=== PATIENT | male | born 1985 | race Caucasian/White ===

== ENCOUNTER 2024-01-03 17:23 | Inpatient (IN) | payer OTHER, SELFPAY ==
[2024-01-03 17:24] VITALS: BP 154/102; PULSE 99; RESP 18; TEMP 36.7; O2SAT 99; BMI 31.9
[2024-01-03 17:29] VITALS: BP 154/102; PULSE 99; RESP 18; TEMP 36.7; O2SAT 99
[2024-01-03 17:55] LABS: Add Urine Microscopic? NO; Charge for UA Resulting for Rev
[2024-01-03 18:00] LABS: Bilirubin Urine Neg (Negative); Blood Urine Neg (Negative); Glucose Urine UA Norm (Normal); Ketones Urine 1+ (Negative); Leukocyte Esterase Urine Negative (Negative); Nitrate Urine Negative; Protein Urine Neg (Negative); Urine Appearance Clear (CLEAR); Urine Color Yellow (Yellow); Urobilinogen Urine Norm (Negative); pH Urine 5 (5-7)
[2024-01-03 18:08] LABS: Amphetamines Screen Urine Negative (Negative); Barbiturates Screen Urine Negative (Negative); Benzodiazepines Screen Urine Negative (Negative); Cocaine Screen Urine Negative (Negative); Opiate Screen Urine Negative (Negative); PCP Screen Urine Negative (Negative); THC Screen Urine Negative (Negative)
[2024-01-03 18:21] LABS: Basophils # 0.1 10^3/uL (0.0-0.1); Basophils % 0.6 %; Eosinophils # 0.6 10^3/uL (0.0-0.8); Eosinophils % 6.6 %; Hematocrit 47.6 % (37-53); Lymphocytes % 21.7 %; Mean Corpuscular HGB Conc 34.2 g/dL (30-55); Mean Corpuscular Hemoglobin 30.5 pg (27-33); Mean Corpuscular Volume 89.1 fl (82-101); Mean Platelet Volume 10.7 fL (7.4-10.4); Monocytes # 0.7 10^3/uL (0.2-0.9); Monocytes % 7.1 %; Neutrophils # 5.91 10^3/uL (1.8-7.7); Neutrophils % 63.7 %; Nucleated Red Blood Cells % 0 %; Platelet Count 280 10^3/cmm (157-399); Red Blood Count 5.34 10^6/uL (3.85-5.65); Red Cell Distribution Width 12.6 % (12.1-15.1); White Blood Count 9.29 10^3/uL (3.29-11.43)
--- NOTE | 2024-01-03 18:27 | ED.C_ITS ---
HPI - Psych 2 General: Chief Complaint: Psychiatric Symptoms Stated Complaint: si Time Seen by Provider: 01/03/24 17:34 Source: patient Mode of arrival: EMS Limitations: no limitations History of Present Illness: Patient is a 38-year-old male who was brought in by EMS due to suicidal ideations. Patient states he has had similar instances in the past and overall he has had many years of feeling suicidal, however it has been worsened lately due to multiple personal issues. He states he has been caring for his 2 grandparents who have been deteriorating for some time, and this has caused him a lot of angst. He also states that he has been scammed multiple times, does not elaborate on this. His plan at this time is to call 911 and then mutilate himself with a knife so that they find a disturbing, gruesome seen. He states that he was in the [place] and used to get seen by psychiatrist at that time, has not seen one in a long time. He is not on any medications. Does not report any homicidal ideations or hallucinations of any kind. No other medical complaints at this time. MD complaint: suicidal ideation Onset (ago): year(s) Duration: constant History of same: Yes Context: not taking psychiatric medications and significant life stressor Associated symptoms: Reports depression and suicidal ideation; Deny auditory hallucinations, visual hallucinations or homicidal ideation If self harm: admits thoughts of self harm and has plan Review of Systems 2 General: Reports: 10 or more systems reviewed and unremarkable except in HPI and below Const: Denies: fever(s), chills or fatigue Eyes: Denies: change in vision ENMT: Denies: throat pain, ear or mastoid pain or nasal discharge Card: Denies: chest pain, palpitations, swelling of feet/ankles or lightheadedness Resp: Denies: dyspnea, productive cough or wheezing GI: Denies: abdominal pain, nausea, vomiting, diarrhea or constipation : Denies: flank pain, difficulty urinating, dysuria or urinary frequency Musc: Denies: neck pain, back pain or joint pain Skin/Breast: Denies: rash Neuro: Denies: headache(s), numbness in extremities or weakness in extremities Psych: Reports: depression, hopelessness and suicidal ideation; Denies: visual hallucinations, auditory hallucinations, tactile hallucinations or homicidal ideation Physical Exam 2 Const: COMMON NORMALS: no acute distress, patient oriented x3 and no limitations GENERAL APPEARANCE: cooperative, comfortable and well developed ORIENTATION/CONSCIOUSNESS: Yes awake, Yes oriented to person, Yes oriented to place and Yes oriented to time HENMT: COMMON NORMALS: normocephalic, atraumatic and hearing grossly normal bilaterally HEAD & SCALP: normocephalic and atraumatic Eye: COMMON NORMALS: Equal, round and reactive pupils present, EOMs intact bilaterally and conjunctivae normal CONJUNCTIVA: Yes conjunctivae normal P UPIL: Yes Equal, round and reactive pupils present Neck/C-Spine: COMMON NORMALS: full ROM, supple and no JVD Resp: COMMON NORMALS: normal respiratory effort, No retractions, No use of accessory muscles and clear to auscultation bilaterally AUSCULTATION: clear to auscultation bilaterally Cardio: COMMON NORMALS: no JVD, regular rate, regular rhythm, No clicks present (Cardio), No murmurs present (Cardio) and No rub (Cardio) RATE: r egular rate RHYTHM: regular rhythm GI: COMMON NORMALS: Normal to inspection, nondistended, normoactive bowel sounds present, Soft to palpation and non-tender AUSCULTATION: Yes normoactive bowel sounds PALPATION: Yes Soft to palpation RECTAL EXAM: Yes deferred Extremity: COMMON NORMALS: normal to inspection, full ROM and capillary refill normal Neuro: COMMON NORMALS: patient oriented x3, CN's II-XII intact bilaterally, moves all extremities, no focal motor deficits and no sensory deficits noted SENSORIUM/ORIENTATION: Yes oriented to person, Yes oriented to place and Yes oriented to time Psych: COMMON NORMALS: mental status grossly normal and Normal thought process present APPEARANCE: Yes grossly normal ATTITUDE: Yes calm A CTIVITY/MOTOR BEHAVIOR: Yes psychomotor agitation SPEECH: Yes rapid MOOD & AFFECT: Yes depressed mood THOUGHT PROCESS: Normal thought process present THOUGHT CONTENT: Yes Suicidality present, No Homicidality present and No Hallucination(s) present ATTENTION/CONCENTRATION: Yes attention grossly intact Skin: COMMON NORMALS: no rashes or lesions noted GENERAL SKIN EXAM: no rashes or lesions noted Course 2 Vital Signs: Vital signs: Vital Signs Temperature 98.1 F 01/03/24 17:29 Pulse Rate 99 01/03/24 17:29 Respiratory Rate 18 01/03/24 17:29 Blood Pressure 154/102 01/03/24 17:29 Pulse Oximetry 99 01/03/24 17:29 Oxygen Delivery Me thod Room Air 01/03/24 17:29 MDM - Psych Medical Decision Making Patient cleared medically and admitted to neuropsychiatric unit by Dr. Fischer. Case discussed with supervising ED physician, Dr. Malik. Lab Data 01/03/24 18:12 01/03/24 18:12 Laboratory Results WBC 9.29 10^3/uL (3.29-11.43) 01/03/24 18:12 RBC 5.34 10^6/uL (3.85-5.65) 01/03/24 18:12 Hgb 16.30 g/dL (11.27-16.99) 01/03/24 18:12 Hct 47.6 % (37-53) 01/03/24 18:12 MCV 89.1 fl (82-101) 01/03/24 18:12 MCH 30.5 pg (27-33) 01/03/24 18:12 MCHC 34.2 g/dL (30-55) 01/03/24 18:12 RDW 12.6 % (12.1-15.1) 01/03/24 18:12 Plt Count 280 10^3/cmm (157-399) 01/03/24 18:12 MPV 10.7 fL (7.4-10.4) H 01/03/24 18:12 Neut % (Auto) 63.7 % 01/03/24 18:12 Lymph % (Auto) 21.7 % 01/03/24 18:12 [place] % (Auto) 7.1 % 01/03/24 18:12 Eos % (Auto) 6.6 % 01/03/24 18:12 Baso % (Auto) 0.6 % 01/03/24 18:12 Neut # (Auto) 5.91 10^3/uL (1.8-7.7) 01/03/24 18:12 Lymph # (Auto) 2.0 10^3/uL (0.8-4.8) 01/03/24 18:12 [place] # (Auto) 0.7 10^3/uL (0.2-0.9) 01/03/24 18:12 Eos # (Auto) 0.6 10^3/uL (0.0-0.8) 01/03/24 18:12 Baso # (Auto) 0.1 10^3/uL (0.0-0.1) 01/03/24 18:12 Nucleated RBC % (auto) 0 % 01/03/24 18:12 Nucleated RBCs # 0.0 /100WBC 01/03/24 18:12 Sodium 139 mmol/L (136-145) 01/03/24 18:12 Potassium 3.8 mmol/L (3.5-5.1) 01/03/24 18:12 Chloride 103 mmol/L (98-107) 01/03/24 18:12 Carbon Dioxide 23 mmol/L (22-29) 01/03/24 18:12 Anion Gap 16.8 (5-19) 01/03/24 18:12 BUN 12 mg/dL (6-20) 01/03/24 18:12 Creatinine 1.0 mg/dL (0.7-1.2) 01/03/24 18:12 GFR Calculation 83.2 mL/min (90-130) L 01/03/24 18:12 Glucose 86 mg/dL (65-115) 01/03/24 18:12 Calculated Osmolality 287 mOsm/kg (285-295) 01/03/24 18:12 Calcium 9.4 mg/dL (8.5-10.5) 01/03/24 18:12 Total Bilirubin 0.6 mg/dL (0.15-1.2) 01/03/24 18:12 AST 19 U/L (0-40) 01/03/24 18:12 ALT 19 U/L (0-41) 01/03/24 18:12 Alkaline Phosphatase 89 U/L (40-130) 01/03/24 18:12 Total Protein 7.9 g/dL (6.6-8.7) 01/03/24 18:12 Albumin 4.4 g/dL (3.5-5.2) 01/03/24 18:12 Globulin 3.5 g/dL (1.3-4.6) 01/03/24 18:12 Urine Color Yellow (Yellow) 01/03/24 17:32 Urine Appearance Clear (CLEAR) 01/03/24 17:32 Urine pH 5 (5-7) 01/03/24 17:32 Ur Specific [place] 1.020 (1.005-1.030) 01/03/24 17:32 Urine Protein Neg (Negative) 01/03/24 17:32 Urine Glucose (UA) Norm (Normal) 01/03/24 17:32 Urine Ketones 1+ (Negative) H 01/03/24 17:32 Urine Blood Neg (Negative) 01/03/24 17:32 Urine Nitrate Negative 01/03/24 17:32 Urine Bilirubin Neg (Negative) 01/03/24 17:32 Urine Urobilinogen Norm mg/dL (Negative) 01/03/24 17:32 Ur Leukocyte Esterase Negative (Negative) 01/03/24 17:32 Salicylates < 0.3 mg/dL (3-10) L 01/03/24 18:12 Urine Opiates Screen Negative ng/mL (Negative) 01/03/24 17:32 Acetaminophen < 5.0 ug/mL (10-30) L 01/03/24 18:12 Ur Barbiturates Screen Negative ng/mL (Negative) 01/03/24 17:32 Ur Phencyclidine Scrn Negative ng/mL (Negative) 01/03/24 17:32 Ur Amphetamines Screen Negative ng/mL (Negative) 01/03/24 17:32 U Benzodiazepines Scrn Negative ng/mL (Negative) 01/03/24 17:32 Urine Cocaine Screen Negative ng/mL (Negative) 01/03/24 17:32 U Marijuana (THC) Screen Negative ng/mL (Negative) 01/03/24 17:32 Ethyl Alcohol < 10 mg/dL (0-10) 01/03/24 18:12 No radiology studies performed this visit Discharge Plan Discharge Patient Disposition: Admitted As Inpatient Admit Provider: Brennan Fischer Clinical Impression: Suicidal ideation Condition: Stable Coding Level of Care Code ED Licensed Mental Health Counselor for Benoit Duval
[2024-01-03 18:37] LABS: Alanine Aminotransferase 19 U/L (0-41); Albumin Level 4.4 g/dL (3.5-5.2); Alkaline Phosphatase 89 U/L (40-130); Anion Gap 16.8 (5-19); Aspartate Amino Transferase 19 U/L (0-40); Blood Urea Nitrogen 12 mg/dL (6-20); Calcium 9.4 mg/dL (8.5-10.5); Carbon Dioxide 23 mmol/L (22-29); Chloride 103 mmol/L (98-107); Creatinine Clr Calc Pharmacy 111.0181; Globulin 3.5 g/dL (1.3-4.6); Glomerular Filtration Rate 83.2 mL/min (90-130); Glucose 86 mg/dL (65-115); Osmolality Calculated 287 mOsm/kg (285-295); Potassium 3.8 mmol/L (3.5-5.1); Sodium 139 mmol/L (136-145); Total Bilirubin 0.6 mg/dL (0.15-1.2); Total Protein 7.9 g/dL (6.6-8.7)
[2024-01-03 18:41] LABS: Acetaminophen < 5.0 ug/mL (10-30); Alcohol Level < 10 mg/dL (0-10); Salicylate < 0.3 mg/dL (3-10)
[2024-01-03 19:58] VITALS: BP 144/89; PULSE 102; RESP 16; O2SAT 97
[2024-01-03 22:00] VITALS: BP 131/88; PULSE 104; RESP 18; TEMP 36.8; O2SAT 96
[2024-01-04 06:00] VITALS: BP 122/86; PULSE 81; RESP 18; TEMP 37.1; O2SAT 97
[2024-01-04 14:00] VITALS: BP 101/71; PULSE 96; RESP 18; TEMP 36.6; O2SAT 98
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
[2024-01-04] MEDS: fluoxetine 20 mg Capsule PO (17:34)
[2024-01-04 21:45] VITALS: BP 112/77; PULSE 109; RESP 17; TEMP 37; O2SAT 98
[2024-01-05 06:00] VITALS: BP 105/71; PULSE 86; RESP 18; TEMP 36.4; O2SAT 99
[2024-01-05] MEDS: fluoxetine 20 mg Capsule PO (09:10)
--- NOTE | 2024-01-05 09:41 | PC.NURSE ---
During assessment, patient stated that he is doing alright. When asked about depression, patient stated that he always has depression, which he rates 6/10. Patient denies anxiety, Si, HI, AVH. Patient cooperative during assessment.
[2024-01-05 14:00] VITALS: BP 111/77; PULSE 82; RESP 16; TEMP 36.4; O2SAT 98
--- NOTE | 2024-01-05 16:21 | W.PM.NPUPNS ---
Subjective NPU Subjective: 38-year-old male admitted with an extended history of depression with limited treatment who had expressed plans to mutilate himself with a knife. Patient had reported increased stress in the home. He had described having problems with managing chronic depression. He had reported that he had been stressed by having to care for his 2 grandparents. He had reported that he would like to have therapy. He had reported that his suicidal thoughts had been less intense. He had endorsed some feelings of loneliness. He reported no side effects from the Prozac. Mental Status Exam MSE Comments: This is an obese white male in hospital scrubs with limited grooming and eye contact. No abnormal movements except for psychomotor retardation. Cooperative with exam and mild to moderate distress. Speech was decreased in rate and volume. Mood described as depressed, His affect was mood congruent and restricted.. Thought process was linear and organized. Thought content: Patient denied current suicidal or homicidal ideation, there were no delusions reported or noted, he denied any auditory or visual hallucinations. The patient presents with suicidal ideation and a history of suicide attempts. He reports a long-standing history of depression, feelings of hopelessness and helplessness, and passive wish. He denies any paranoia, hallucinations, or nightmares. Attention and concentration were intact and memory was mostly reliable but none were formally tested. He is alert and oriented times x 3. Insight and judgment are fair. His impulse control is limited versus impaired. Vitals/I&O/Wt Last Vital Signs Temp 97.6 F 01/05/24 14:00 Pulse 82 01/05/24 14:00 Resp 16 01/05/24 14:00 BP 111/77 01/05/24 14:00 Pulse Ox 98 01/05/24 14:00 O2 Del Method Room Air 01/05/24 14:00 Weight last 48 hrs Weight 95.254 kg Data NPU 01/03/24 18:12 01/03/24 18:12 A&P Assessment and plan (1) Suicidal ideation: (2) Major depressive disorder, recurrent: Plan Patient is a 38-year-old male with a long history of depression without significant treatment 1 past inpatient hospitalization and significant recent psychosocial stressors that have led to this hospitalization with report of having suicidal thoughts with a plan having never been on medication. The patient is suffering from severe depression with suicidal ideation. He has a history of suicide attempts and has been struggling with depression for a long time. His condition has worsened in the past year due to the loss of his support system and increased stressors in his life. 1. Continue Prozac 20 mg p.o. daily. 2. Encourage individual, group and milieu therapy. 3. Continue q-15 minute checks for safety.? 4.? Connect with outpatient services. Involuntary Hold Information 96 Hour Hold: 96 Hour Involuntary Admission: No Attestations NPU Medical Necessity Statement*: Inpatient hospitalization is medically necessary and the clinically appropriate intervention?at this time.? We will monitor/initiate medications and make changes as indicated.? The patient will be in the hospital for over 2 midnights.? The patient?s likely length of stay 3-5 days. Coding Level of Care Code Acute Code for [employer] Fwd Diagnoses Suicidal ideation R45.851 Major depressive disorder, recurrent F33.9
[2024-01-05 20:46] VITALS: BP 132/79; PULSE 102; RESP 17; TEMP 36.9; O2SAT 99
[2024-01-06 06:00] VITALS: BP 132/84; PULSE 83; RESP 18; TEMP 36.8; O2SAT 97
[2024-01-06] MEDS: fluoxetine 20 mg Capsule PO (08:42)
[2024-01-06 14:00] VITALS: BP 130/88; PULSE 88; RESP 16; TEMP 36.6; O2SAT 93
--- NOTE | 2024-01-06 19:01 | P.NPUPN_ITS ---
Subjective NPU 2 Subjective: 38-year-old male admitted with an extend ed history of depression with limited treatment who had expressed plans to mutilate himself with a knife. Patient had reported that he continued to worry about what would happen to him if he were to become more distressed when he went home. He had reported having had an extended single episode of depression that it never achieved remission that had lasted at least 15 years. He reports no triggers to the most recent episode. He had reported feeling more hopeful and reported no side effects from his Prozac. He had reported that he had continued to feel frustrated by his difficulties with obtaining employment and reported that he had further stress from managing his disabled grandparents. He had expressed desire to consider psychotherapy as well on an outpatient basis. Mental Status Exam 2 MSE Comments: This is an obese white male in hospital scrubs with limited grooming and eye contact. No abnormal movements except for mild psychomotor retardation. Cooperative with exam and mild to moderate distress. Speech was decreased in rate and volume. Mood described as a little better. His affect remained restricted and mood incongruent. Thought process was linear and organized. Thought content: Patient denied current suicidal or homicidal ideation, there were no delusions reported or noted, he denied any auditory or visual hallucinations. He reports a long-standing history of depression, feelings of hopelessness and helplessness, and passive wish. He denies any paranoia, hallucinations, or nightmares. Attention and concentration were intact and memory was mostly reliable but none were formally tested. He is alert and oriented times x 3. Insight and judgment are fair. His impulse control is limited versus impaired. Vitals/I&O/Wt Last Vital Signs Temp 97.9 F 01/06/24 14:00 Pulse 88 01/06/24 14:00 Resp 16 01/06/24 14:00 BP 130/88 01/06/24 14:00 Pulse Ox 93 01/06/24 14:00 O2 Del Method Room Air 01/06/24 14:00 Weight last 48 hrs Weight 102.512 kg Data NPU 01/03/24 18:12 01/03/24 18:12 A&P Assessment and plan (1) Suicidal ideation: (2) Major depressive disorder, recurrent: Plan Patient is a 38-year-old male with a long history of depression without significant treatment 1 past inpatient hospitalization and significant recent psychosocial stressors that have led to this hospitalization with report of having suicidal thoughts with a plan having never been on medication. The patient is suffering from severe depression with suicidal ideation. He has a history of suicide attempts and has been struggling with depression for a long time. His condition has worsened in the past year due to the loss of his support system and increased stressors in his life. 1. Continue Prozac 20 mg p.o. daily. 2. Encourage individual, group and milieu therapy. 3. Continue q-15 minute checks for safety.? 4.? Connect with outpatient services, discussed other treatment modalities for depression including TMS. Involuntary Hold Information 2 96 Hour Hold: 96 Hour Involuntary Admission: No Attestations NPU 2 Medical Necessity Statement*: Inpatient hospitalization is medically necessary and the clinically appropriate intervention?at this time.? We will monitor/initiate medications and make changes as indicated.? The patient?s likely length of stay 3-5 days. Coding Level of Care Code Acute Code for Chg Fwd Diagnoses Suicidal ideation R45.851 Major depressive disorder, recurrent F33.9
[2024-01-06 19:45] VITALS: BP 114/78; PULSE 79; RESP 18; TEMP 36.7; O2SAT 98
[2024-01-07 06:00] VITALS: BP 123/89; PULSE 91; RESP 17; TEMP 36.7; O2SAT 97
[2024-01-07] MEDS: fluoxetine 20 mg Capsule PO (08:52)
--- NOTE | 2024-01-07 10:06 | PC.NURSE ---
PT CURRENTLY DENIES SI/HI/AH/VH. PT CURRENTLY ENDORSES DEPRESSION RATING IT AN 8/10 ON A 0-10 SCALE WHERE 0 IS NONE AND 10 IS THE WORST POSSIBLE. PT ENDORSED ANXIETY RATING IT A 5/10 ON THE SAME SCALE PREVIOUS. PT WAS COOPERATIVE WITH ASSESSMENT AND MEDICATIONS. PT CURRENT NEEDS ARE MET AT THIS TIME.
[2024-01-07 13:25] VITALS: BP 123/89; PULSE 91; RESP 17; TEMP 36.7; O2SAT 97
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
== END 2024-01-07 16:21 | disposition home or self-care (01) | DRG 885 ==
LOC: ER 18:55 → NP 19:12
PROVIDERS: Admitting Provider Psychiatry & Neurology Psychiatry; Emergency Provider Physician Assistant; Visit Provider Psychiatry & Neurology Psychiatry
DX: F33.9 Major depressive disorder, recurrent, unspecified (principal); R45.851 Suicidal ideations; Z91.51 Personal history of suicidal behavior; Z62.810 Personal history of physical and sexual abuse in childhood; Z62.811 Personal history of psychological abuse in childhood
CPT/HCPCS: 36415; 80053; 80306; 80307; 81003; 85025; 97150; 97165; 99285